=== PATIENT | female | born 1990 | race Caucasian/White ===

== ENCOUNTER 2022-05-20 05:00 | Emergency (ER) | payer OTHER ==
[~2022-05-20] VITALS: Ht 154.9 cm; Wt 59.1 kg
[2022-05-20] MEDS ORDERED: KETOROLAC TROMETHAMINE 60 MG/2 ML VIAL IM ONE (05:30)
[2022-05-20] MEDS ORDERED: ACETAMINOPHEN/CODEINE 300-30 MG TABLET PO ONE (05:30)
[2022-05-20 07:37] LABS: APPEARANCE,URINE SLIGHTLY CLOUDY (CLEAR); GLUCOSE, URINE (UA) NEGATIVE (NEGATIVE); OCCULT BLOOD,URINE SMALL (NEGATIVE); PH,URINE 6.5 (5.0-8.0); PROTEIN,URINE NEGATIVE (NEGATIVE)
[2022-05-20 07:38] LABS: BILIRUBIN,URINE NEGATIVE (NEGATIVE); KETONES,URINE NEGATIVE (NEGATIVE); LEUKOCYTE ESTERASE ,URINE LARGE (NEGATIVE); NITRATE,URINE NEGATIVE (NEGATIVE); UROBILINOGEN,URINE 0.2 mg/dL (<=1.0)
[2022-05-20 07:39] LABS: BACTERIA,URINE Many /HPF (None Seen); SQUAMOUS EPITHELIAL CELL,UR Many /LPF (None Seen)
[2022-05-20] MEDS ORDERED: SULFAMETHOX/TRIMETH DS 800-160 MG/TABLET PO ONE (08:00)
[2022-05-20] MEDS ORDERED: ONDANSETRON HCL 4 MG TABLET PO ONE (09:00)
[2022-05-20] MEDS ORDERED: ONDANSETRON HCL 4 MG/2 ML VIAL IVP ONE (09:15)
[2022-05-20] MEDS ORDERED: FAMOTIDINE 10 MG/ML 2 ML VIAL IVP ONE (09:15)
[2022-05-20 09:21] VITALS: BP 118/63
== END 2022-05-20 10:47 | disposition home or self-care (01) ==
LOC: EMS 05:04
DX: M54.9 Dorsalgia, unspecified (principal); M25.551 Pain in right hip; N39.0 Urinary tract infection, site not specified
CPT/HCPCS: 36415; 72100; 73502; 81001; 84703; 87086; 96372; 96374; 96375; 99284; J1885; J2405; J3490; Q0162